=== PATIENT | male | born 1975 | race Caucasian/White ===

== ENCOUNTER 2023-05-25 05:14 | Inpatient (IN) | payer MEDICAID ==
[~2023-05-25] VITALS: Ht 170.2 cm; Wt 76.0 kg
[2023-05-25] MEDS ORDERED: LORazepam 2 MG/ML VIAL IVP ONE ×2 (06:15→20:45)
[2023-05-25] MEDS ORDERED: SODIUM CHLORIDE 0.9% 1,000 ML IV ONE ×3 (06:15→08:45)
[2023-05-25] MEDS ORDERED: LevETIRAcetam 1,000 MG in DEXTROSE 5%-WATER 100 ML IV ONE (06:15)
[2023-05-25 06:35] LABS: BASOPHILS % (AUTO) 0.5 % (0.0-2.0); EOSINOPHILS % (AUTO) 0 % (1.0-6.0); HEMATOCRIT 39.8 % (41-53); HEMOGLOBIN 13.1 g/dL (13.5-17.5); LYMPHOCYTES # (AUTO) 0.4 K/uL (1.0-4.8); LYMPHOCYTES % (AUTO) 4.8 % (22.0-44.0); MEAN CORPUSCULAR HEMOGLOBIN 32.6 pg (26.0-34.0); MEAN CORPUSCULAR HGB CONC 32.8 G/dL (31.0-37.0); MEAN CORPUSCULAR VOLUME 99 fL (80-100); MONOCYTES # (AUTO) 0.8 K/uL (0.1-1.0); MONOCYTES % (AUTO) 10.2 % (2.0-9.0); NEUTROPHILS # (AUTO) 6.7 K/uL (1.8-7.7); NEUTROPHILS % (AUTO) 84.5 % (40.0-70.0); PLATELET COUNT (AUTO) 93 K/uL (150-450); RED BLOOD CELL COUNT(AUTO) 4.01 MIL/uL (4.50-5.90); RED CELL DISTRIBUTION WIDTH 14.8 % (11.5-14.5)
[2023-05-25 06:44] LABS: ANION GAP 13 mmol/L (8-16); CALCIUM, TOTAL 9.4 mg/dL (8.8-10.5); CARBON DIOXIDE 24 mmol/L (22-29); CHLORIDE 94 mmol/L (98-107); CREATININE 1.08 mg/dL (0.60-1.30); GLOMERULAR FILTR. RATE CALC > 60 mL/min (>60); GLUCOSE,RANDOM 191 mg/dL (70-110); POTASSIUM 3.7 mmol/L (3.5-5.1); SODIUM SERUM 131 mmol/L (136-145)
[2023-05-25 06:54] LABS: LACTIC ACID 5.7 mmol/L (0.4-2.0)
[2023-05-25 07:07] LABS: B-TYPE NATRIURETIC PEPTIDE 74 pg/mL (0-100)
[2023-05-25 07:09] LABS: ALANINE AMINOTRANSFERASE 129 U/L (12-78); ALBUMIN 4.2 g/dL (3.4-5.0); ALKALINE PHOSPHATASE 104 U/L (46-116); ASPARTATE AMINOTRANSFERASE 138 U/L (15-37); BILIRUBIN,TOTAL 0.8 mg/dL (0.1-1.0); CREATINE KINASE, TOTAL ONLY 785 U/L (39-308); TOTAL PROTEIN, SERUM 8.5 g/dL (6.4-8.2)
[2023-05-25] MEDS ORDERED: ZOLPIDEM TARTRATE 5 MG TABLET PO PRN (08:45)
[2023-05-25] MEDS ORDERED: ONDANSETRON HCL 4 MG/2 ML VIAL IVP PRN (08:45)
[2023-05-25] MEDS ORDERED: ACETAMINOPHEN 325 MG TABLET PO PRN (08:45)
[2023-05-25] MEDS: DOCUSATE SODIUM 100 MG CAPSULE PO SCH ×2 (09:00→20:22)
[2023-05-25 09:18] LABS: AMPHET/METH SCREEN,URINE NEGATIVE (NEGATIVE); BARBITURATE SCREEN, URINE NEGATIVE (NEGATIVE); BENZODIAZEPINES SCREEN,URINE NEGATIVE (NEGATIVE); CANNABINOID SCREEN,URINE NEGATIVE (NEGATIVE); COCAINE SCREEN,URINE NEGATIVE (NEGATIVE); METHADONE SCREEN, URINE NEGATIVE (NEGATIVE); OPIATE SCREEN,URINE NEGATIVE (NEGATIVE); PHENCYCLIDINE SCREEN,URINE NEGATIVE (NEGATIVE)
[2023-05-25] MEDS: FAMOTIDINE 20 MG TABLET PO SCH ×2 (09:39→20:22)
[2023-05-25] MEDS: MULTIVITAMINS WITH MINERALS, THERAPEUTIC TABLET PO SCH (09:39)
[2023-05-25] MEDS: ChlordiazePOXIDE HCL 10 MG CAPSULE PO SCH ×3 (09:39→23:27)
[2023-05-25] MEDS: LORazepam 2 MG/ML VIAL IVP PRN ×2 (10:21→18:40)
[2023-05-25] MEDS ORDERED: METO25 PO (13:30)
[2023-05-25] MEDS ORDERED: HYDR-4808 PO (13:30)
[2023-05-25] MEDS ORDERED: SERT-158 PO (13:30)
[2023-05-25] MEDS ORDERED: NALT50TA6 PO (13:30)
[2023-05-25] MEDS ORDERED: TRAZ-252 PO (13:30)
[2023-05-25] MEDS ORDERED: AMLO-257 PO (13:30)
[2023-05-25] MEDS: AmLODIPine BESYLATE 5 MG TABLET PO SCH (13:35)
[2023-05-25 17:34] VITALS: BP 170/118; PULSE 112; RESP 24; TEMP 98.8
[2023-05-25 20:00] VITALS: BP 164/118; PULSE 108; RESP 19; TEMP 98.8
[2023-05-25] MEDS: METOPROLOL TARTRATE 25 MG TABLET PO SCH (21:09)
[2023-05-26] VITALS: BP 154/114; PULSE 106; RESP 18; TEMP 98.7
[2023-05-26 05:00] VITALS: BP 153/98; PULSE 131; RESP 18; TEMP 98.1
[2023-05-26 07:46] VITALS: BP 135/100; PULSE 132; RESP 17; TEMP 98.6
[2023-05-26] MEDS: AmLODIPine BESYLATE 5 MG TABLET PO SCH (08:46)
[2023-05-26] MEDS: DOCUSATE SODIUM 100 MG CAPSULE PO SCH ×2 (08:46→21:43)
[2023-05-26] MEDS: METOPROLOL TARTRATE 25 MG TABLET PO SCH ×2 (08:46→21:43)
[2023-05-26] MEDS: ChlordiazePOXIDE HCL 10 MG CAPSULE PO SCH ×3 (08:46→23:42)
[2023-05-26] MEDS: FAMOTIDINE 20 MG TABLET PO SCH ×2 (08:46→21:42)
[2023-05-26] MEDS: MULTIVITAMINS WITH MINERALS, THERAPEUTIC TABLET PO SCH (08:46)
[2023-05-26 09:38] LABS: BASOPHILS % (AUTO) 0.7 % (0.0-2.0); EOSINOPHILS % (AUTO) 0.8 % (1.0-6.0); HEMATOCRIT 44.1 % (41-53); LYMPHOCYTES # (AUTO) 1.1 K/uL (1.0-4.8); LYMPHOCYTES % (AUTO) 19.4 % (22.0-44.0); MEAN CORPUSCULAR HEMOGLOBIN 33.8 pg (26.0-34.0); MEAN CORPUSCULAR VOLUME 99 fL (80-100); MONOCYTES # (AUTO) 0.6 K/uL (0.1-1.0); MONOCYTES % (AUTO) 10.6 % (2.0-9.0); NEUTROPHILS # (AUTO) 3.9 K/uL (1.8-7.7); NEUTROPHILS % (AUTO) 68.5 % (40.0-70.0); PLATELET COUNT (AUTO) 94 K/uL (150-450); RED BLOOD CELL COUNT(AUTO) 4.44 MIL/uL (4.50-5.90)
[2023-05-26 09:52] LABS: ANION GAP 13 mmol/L (8-16); CALCIUM, TOTAL 9.6 mg/dL (8.8-10.5); CARBON DIOXIDE 26 mmol/L (22-29); CHLORIDE 97 mmol/L (98-107); CREATININE 1.16 mg/dL (0.60-1.30); GLOMERULAR FILTR. RATE CALC > 60 mL/min (>60); GLUCOSE,RANDOM 131 mg/dL (70-110); POTASSIUM 3.2 mmol/L (3.5-5.1); SODIUM SERUM 136 mmol/L (136-145)
[2023-05-26] MEDS ORDERED: POTASSIUM CHL 10 MEQ/WATER 50 ML IV PRN (11:15)
[2023-05-26] MEDS ORDERED: SODIUM CHLORIDE 0.9% 1,000 ML IV ONE (11:15)
[2023-05-26] MEDS ORDERED: POTASSIUM CHLORIDE 20 MEQ ER TABLET PO PRN (11:15)
[2023-05-26 11:42] VITALS: BP 108/87; PULSE 101; RESP 17; TEMP 98.4
[2023-05-26 15:32] VITALS: BP 123/90; PULSE 95; RESP 18; TEMP 98.4
[2023-05-27] VITALS: BP 120/85; PULSE 68; RESP 20; TEMP 98
[2023-05-27 04:00] VITALS: BP 130/90; PULSE 84; RESP 20; TEMP 98.6
[2023-05-27 07:36] VITALS: BP 141/98; PULSE 78; RESP 18; TEMP 98.2
[2023-05-27] MEDS: ChlordiazePOXIDE HCL 10 MG CAPSULE PO SCH (08:25)
[2023-05-27] MEDS: MULTIVITAMINS WITH MINERALS, THERAPEUTIC TABLET PO SCH (08:25)
[2023-05-27] MEDS: METOPROLOL TARTRATE 25 MG TABLET PO SCH (08:25)
[2023-05-27] MEDS: FAMOTIDINE 20 MG TABLET PO SCH (08:25)
[2023-05-27] MEDS: AmLODIPine BESYLATE 5 MG TABLET PO SCH (08:25)
[2023-05-27] MEDS: DOCUSATE SODIUM 100 MG CAPSULE PO SCH (08:25)
[2023-05-27 11:11] VITALS: BP 130/87; PULSE 86; RESP 18; TEMP 98.5
== END 2023-05-27 15:10 | disposition home or self-care (01) | DRG 351 ==
LOC: EMS 05:15 → 5S 16:13
PROVIDERS: ADMIT Internal Medicine; ATTEND Internal Medicine
DX: M62.82 Rhabdomyolysis (principal); D69.6 Thrombocytopenia, unspecified; K70.9 Alcoholic liver disease, unspecified; F10.130 Alcohol abuse with withdrawal, uncomplicated; E87.6 Hypokalemia; W18.39XA Other fall on same level, initial encounter; Y93.89 Activity, other specified; Y92.89 Other specified places as the place of occurrence of the external cause; Y99.8 Other external cause status; Z90.49 Acquired absence of other specified parts of digestive tract
CPT/HCPCS: 70450; 71045; 72125; 80048; 80053; 80307; 82550; 83605; 83735; 83880; 84132; 84484; 85025; 93005; 99291; G0378; G0480; J0712; J2060; J7030; J7060; 36415-L1; 36415-TC

== ENCOUNTER 2025-03-22 14:06 | Emergency (ER) | payer MEDICAID ==
[~2025-03-22] VITALS: Ht 170.2 cm; Wt 95.5 kg
[~2025-03-22 14:06] MED LIST: AMLO-257 PO; METO25 PO; SERT-158 PO
[2025-03-22 14:16] VITALS: TEMP 98.4
[2025-03-22 14:41] LABS: BASOPHILS % (AUTO) 0.3 % (0.0-2.0); EOSINOPHILS % (AUTO) 0.1 % (1.0-6.0); HEMATOCRIT 45.6 % (41-53); HEMOGLOBIN 15.6 g/dL (13.5-17.5); LYMPHOCYTES # (AUTO) 1.4 K/uL (1.0-4.8); LYMPHOCYTES % (AUTO) 13.6 % (22.0-44.0); MEAN CORPUSCULAR HEMOGLOBIN 32.6 pg (26.0-34.0); MEAN CORPUSCULAR HGB CONC 34.2 G/dL (31.0-37.0); MEAN CORPUSCULAR VOLUME 96 fL (80-100); MONOCYTES # (AUTO) 0.8 K/uL (0.1-1.0); MONOCYTES % (AUTO) 7.6 % (2.0-9.0); NEUTROPHILS # (AUTO) 8.1 K/uL (1.8-7.7); NEUTROPHILS % (AUTO) 78.4 % (40.0-70.0); PLATELET COUNT (AUTO) 269 K/uL (150-450); RED BLOOD CELL COUNT(AUTO) 4.77 MIL/uL (4.50-5.90); RED CELL DISTRIBUTION WIDTH 13.5 % (11.5-14.5); WHITE BLOOD COUNT (AUTO) 10.4 K/uL (4.5-11.0)
[2025-03-22] MEDS: SODIUM CHLORIDE 0.9% 1,000 ML IV ONE (14:45)
[2025-03-22] MEDS: ChlordiazePOXIDE HCL 25 MG CAPSULE PO ONE (14:45)
[2025-03-22 14:50] LABS: ANION GAP 14 mmol/L (8-16); CALCIUM, TOTAL 9.6 mg/dL (8.8-10.5); CARBON DIOXIDE 24 mmol/L (22-29); CHLORIDE 97 mmol/L (98-107); CREATININE 1.28 mg/dL (0.60-1.30); GLOMERULAR FILTR. RATE CALC 60 mL/min (>60); GLUCOSE,RANDOM 134 mg/dL (70-110); POTASSIUM 3.7 mmol/L (3.5-5.1); SODIUM SERUM 135 mmol/L (136-145); UREA NITROGEN, BLOOD 18 mg/dL (7-18)
[2025-03-22 14:55] LABS: ALANINE AMINOTRANSFERASE 55 U/L (12-78); ALBUMIN 4.3 g/dL (3.4-5.0); ALKALINE PHOSPHATASE 88 U/L (46-116); ASPARTATE AMINOTRANSFERASE 61 U/L (15-37); BILIRUBIN,TOTAL 1.2 mg/dL (0.1-1.0); TOTAL PROTEIN, SERUM 8.7 g/dL (6.4-8.2)
[2025-03-22 15:24] LABS: ALCOHOL, BLOOD (SERUM) < 3 mg/dL (0-10)
[2025-03-22] MEDS ORDERED: ERYT3.5O8 OS (15:45)
[2025-03-22 15:46] VITALS: BP 158/92; PULSE 102; RESP 16; O2SAT 99
== END 2025-03-22 15:58 | disposition home or self-care (01) ==
LOC: EMS 14:09
DX: H10.9 Unspecified conjunctivitis (principal); F10.90 Alcohol use, unspecified, uncomplicated; Z90.49 Acquired absence of other specified parts of digestive tract; Z79.899 Other long term (current) drug therapy; Y90.9 Presence of alcohol in blood, level not specified
CPT/HCPCS: 99284; 96360; 80053; 85025; 36415; 93005; G0480; J7030